=== PATIENT | male | born 1960 ===

== ENCOUNTER 2019-09-09 07:55 | Day surgery (SDC) | payer BC ==
[~2019-09-09 07:55] MED LIST: Buffered Lidocaine 1% SYRIN* 1 ML/SYRINGE INTRADERM ONE; Dexamethasone IV* 4 MG/ML 1 ML (4 MG) IV SLOW PU ONE; Dexamethasone IV* 4 MG/ML 1 ML (4 MG) ONE; DiMENhydriNATE IV* 50 MG/ML VIAL IV PUSH PRN; Famotidine IV* 10 MG/ML 2 ML (20 mg) IV ONE; Famotidine IV* 10 MG/ML 2 ML (20 mg) ONE; Lactated Ringers 1000 ML Bag* 1,000 ML IV SCH; Levalbuterol 0.63MG/3ML NEB* UNIT OF USE INH ONE; Naloxone* 0.4 MG/ML 1 ML VIAL IV PRN; Ondansetron ODT TAB* 4 MG PO ONE; PROCHLORPERAZINE INJ 5 MG/ML 2 ML VIAL IV PRN; ceFAZolin 2 GM PREMIX in ORs 2 GM/50 ML BAG ONE
[2019-09-09] MEDS ORDERED: Ondansetron ODT TAB* 4 MG ONE (08:00)
[2019-09-09] MEDS ORDERED: Buffered Lidocaine 1% SYRIN* 1 ML/SYRINGE INTRADERM ONE (08:18)
[2019-09-09] MEDS ORDERED: KETAMINE HCL* 50 MG/ML 10 ML VIAL ONE (08:48)
[2019-09-09] MEDS ORDERED: Propofol* 10 MG/ML 20 ML BTL ONE (08:48)
[2019-09-09] MEDS ORDERED: Midazolam* 1 MG/ML 5 ML VIAL (5 MG) ONE (08:48)
[2019-09-09] MEDS ORDERED: Lidocaine 2% PF * 5 ML VIAL ONE (08:48)
[2019-09-09] MEDS ORDERED: Acetaminophen IV 1GM/100ML * 100 ML ONE (08:48)
[2019-09-09] MEDS ORDERED: Rocuronium* 10 MG/ML VIAL ONE (08:48)
[2019-09-09] MEDS ORDERED: Sugammadex * 200 MG/2 ML VIAL IV PUSH ONE (08:48)
[2019-09-09] MEDS ORDERED: fentaNYL* 50 MCG/ML 2 ML VIAL (100 MCG VIAL) ONE ×3 (08:48→12:09)
[2019-09-09] MEDS ORDERED: HYDROmorphone INJ1* 1 MG/ML SYRINGE ONE ×3 (09:47→12:12)
[2019-09-09] MEDS ORDERED: Bupivacaine 0.5%* 50 ML MDV VIAL ONE (10:38)
[2019-09-09] MEDS ORDERED: Labetalol IV* 5 MG/ML 20 ML VIAL ONE (11:56)
[2019-09-09] MEDS: fentaNYL* 50 MCG/ML 2 ML VIAL (100 MCG VIAL) IV PRN ×4 (12:02→12:18)
[2019-09-09] MEDS: HYDROmorphone INJ1* 1 MG/ML SYRINGE IV PRN ×2 (12:15→13:06)
--- NOTE | 2019-09-09 12:15 | OP ---
Operative Report - Blank - Operative Report Date of Operation: 09/09/19 Note: PATIENT: Robbi Napier DATE OF : 1960 DATE OF SURGERY: 09/09/2019 SURGEON: Polo Case MD HEALTH CLUB MANAGER: MELANIE Easton, whos assistance was necessary for positioning, retraction, help with instrumentation, and closure. ANESTHESIOLOGIST: Dr. 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 Left Achilles tendon debridement and repair 2. Left Achilles tendon tenolysis 2. Left leg posterior compartment fasciotomy 3. Left gastrocnemius recession (Amarilis procedure) ANESTHESIA: GETA IMPLANTS: none TOURNIQUET TIME: Less than 1 hour minutes with a well-padded thigh tourniquet at 250mmHg SPECIMENS: none ESTIMATED BLOOD LOSS: minimal COMPLICATIONS: none STATUS: Stable from the operating room to the recovery room and then home. INDICATIONS FOR PROCEDURE: Robbi has had persistent left Achilles pain despite extensive non-op treatment. Both operative and non operative treatment alternatives were reviewed. Further, the nature and risks of surgery were reviewed in careful detail in the office as well as in the preoperative holding area. Our discussions regarding the risks of surgery included, but were not limited to, infection, wound problems, nerve injury, neuroma, RSD, persistent symptoms, blood clot, rupture, failure of the surgery, and even the remote chance of catastrophic complication. DESCRIPTION OF PROCEDURE: The patient was seen in the preoperative holding unit and informed written consent was obtained. The appropriate extremity was marked. The patient was then brought to the operating room and carefully positioned on the operating room table in the prone position. Anesthesia was induced. All bony prominences were padded with great care. A well-padded thigh tourniquet was placed. A chlorhexidine based pre-scrub was performed followed by a chloraprep prep and drape in standard sterile fashion. A surgical safety pause was then conducted in which we confirmed the appropriate patient, extremity, planned procedure, availability of equipment, indication and administration of prophylactic antibiotics, and DVT prophylaxis in the form of a compression boot on the non- surgical extremity. Exsanguination of the extremity was performed and the tourniquet was inflated. I began by utilizing a longitudinal incision overlying non-insertional Achilles tendon. I then carefully dissected down to the peritenon layer, which was opened in line with the skin incision. I exposed the Achilles tendon and there was inflammatory tissue present which was dissected away from the tendon. I then performed an extensive tenolysis both proximally and distally. I then examined the Achilles tendon and there was a split longitudinal tear. This tear was utilized to debride some degenerative Achilles tendon tissue in the middle of the tendon. I then used a 0 Vicryl suture to repair the tendon tear. I then retracted the Achilles tendon to expose the fascia of the posterior compartment. A posterior compartment fasciotomy was then performed to relieve any stenosis and increase the volume available for the Achilles tendon. I then made a separate, approximately 3-cm incision at the posteromedial calf. I carried the dissection through the soft tissue and divided the crural fascia longitudinally. I then exposed the fascia of the gastrocnemius muscle. Great care was taken to protect the sural nerve throughout this procedure. I cleared all adhesions from the posterior aspect of the gastrocnemius fascia and then transected this in its entirety from medially to laterally. I then identified the plantaris tendon, which was also tight medially. This was transected. These procedures had the effect of improving the ankle dorsiflexion to approximately 10 degrees. I then again confirmed that the sural nerve was in continuity. The wounds were then copiously irrigated and meticulously closed in layers utilizing 3-0 Monocryl for the subdermal layer, and 3-0 nylon or kathleen for the skin. A sterile dressing was then applied followed by a splint with the ankle in a neutral position. The patient was then awakened from anesthesia and transferred to the recovery room in stable condition. There were no complications. All needle and sponge counts were correct at the end of the case. ATTESTATION: I attest I was present and scrubbed and performed the critical portions of the procedure myself. POSTOPERATIVE PLAN: The patient will remain [id number] for an anticipated duration of 2 weeks and follow up in two weeks for likely suture removal and Steri-Strip application. At 2 weeks we will likely transition to a walking boot and start physical therapy.
[2019-09-09] MEDS ORDERED: oxyCODONE TAB* 5 MG TAB ONE ×2 (13:08→13:30)
[2019-09-09] MEDS: oxyCODONE TAB* 5 MG TAB PO PRN ×2 (13:09→13:31)
[2019-09-09 13:42] VITALS: BP 119/79
== END 2019-09-09 13:50 | disposition home or self-care (01) ==
LOC: OR 07:55
PROVIDERS: ATTEND Orthopaedic Surgery
DX: M67.02 Short Achilles tendon (acquired), left ankle (principal); M76.62 Achilles tendinitis, left leg; M76.61 Achilles tendinitis, right leg; M67.01 Short Achilles tendon (acquired), right ankle; F17.210 Nicotine dependence, cigarettes, uncomplicated; I10 Essential (primary) hypertension; J44.9 Chronic obstructive pulmonary disease, unspecified; E78.00 Pure hypercholesterolemia, unspecified; K21.9 Gastro-esophageal reflux disease without esophagitis; F41.8 Other specified anxiety disorders; Z68.35 Body mass index [BMI] 35.0-35.9, adult
CPT/HCPCS: A9270-GY; J0690; J1100; J1170; J2250; J2704; J3010; J3490